=== PATIENT | female | born 2000 | race Caucasian/White ===

== ENCOUNTER → 2018-05-22 | Outpatient (CLI) | payer OTHER ==
--- NOTE | 2018-05-22 14:57 | Diagnostic Imaging Report ---
Indication: Fall with left elbow injury. Time of exam 3:06 PM 2 views left elbow are obtained. The alignment is normal. Joint spaces are well-maintained. No fracture, dislocation or effusion is detected. Impression: No acute bony abnormality is detected. Dictated by: Dictated on workstation # [id number]
== END ==
LOC: RAD 14:37
PROVIDERS: ATTEND Nurse Practitioner Family
DX: S59.902A Unspecified injury of left elbow, initial encounter (principal); W19.XXXA Unspecified fall, initial encounter
CPT/HCPCS: 73070